=== PATIENT | female | born 1965 | race Caucasian/White ===

== ENCOUNTER → 2016-05-29 | Outpatient (CLI) | payer OTHER, SELFPAY ==
[2016-05-29 13:09] LABS: HEMOGLOBIN 12.8 gm/dl (12.3-15.3); RED BLOOD COUNT 4.45 M/UL (4.00-5.10); WHITE BLOOD COUNT 6.7 K/UL (4.5-11.0)
[2016-05-29 13:36] LABS: BUN/CREATININE RATIO 9 (0-10)
== END ==
LOC: CT 12:18
PROVIDERS: Internal Medicine Hematology & Oncology
DX: C34.12 Malignant neoplasm of upper lobe, left bronchus or lung (principal); C77.1 Secondary and unspecified malignant neoplasm of intrathoracic lymph nodes; E03.9 Hypothyroidism, unspecified
CPT/HCPCS: 36415; 71260; 80053; 84436; 84443; 84480; 85025; J7050; Q9962

== ENCOUNTER → 2020-07-28 | Outpatient (CLI) | payer MEDICARE, OTHER | LOC: CT 13:00 | DX: C34.12 Malignant neoplasm of upper lobe, left bronchus or lung (principal); R92.0 Mammographic microcalcification found on diagnostic imaging of breast; C77.1 Secondary and unspecified malignant neoplasm of intrathoracic lymph nodes; D51.8 Other vitamin B12 deficiency anemias; D64.9 Anemia, unspecified; Z98.890 Other specified postprocedural states | CPT/HCPCS: 71260; 77065; Q9967 ==

== ENCOUNTER → 2021-06-28 | Outpatient (CLI) | payer MEDICARE | LOC: CT 14:44 | DX: C34.90 Malignant neoplasm of unspecified part of unspecified bronchus or lung (principal); J39.8 Other specified diseases of upper respiratory tract | CPT/HCPCS: 71270; Q9967 ==

== ENCOUNTER → 2021-11-24 | Day surgery (SDC) | payer MEDICARE, OTHER ==
[~2021-11-24] MED LIST: AZELASTINE HCL6 ML OP; BENZONATATE100 MG PO; BREZTRI AEROS10.7 GM INH; CARVEDILOL6.25 MG PO; CLARITIN10 M2 PO; CRESTOR20 MG PO; JARDIANCE10 MG PO; LEVOTHYROXINE75 MC1 PO; ONDANSETRON HCL4 MG PO; OXYCODONE-ACET1 EACH PO; PROAIR HFA8.5 GM INH; PROTONIX 40 MG40 M1 PO; VAZALORE81 MG PO
== END | disposition home or self-care (01) ==
LOC: OR 06:54
DX: Z12.11 Encounter for screening for malignant neoplasm of colon (principal); K29.60 Other gastritis without bleeding; K64.1 Second degree hemorrhoids; K25.4 Chronic or unspecified gastric ulcer with hemorrhage; R63.4 Abnormal weight loss; J44.9 Chronic obstructive pulmonary disease, unspecified; E03.9 Hypothyroidism, unspecified; Z85.118 Personal history of other malignant neoplasm of bronchus and lung; Z72.0 Tobacco use; Z79.82 Long term (current) use of aspirin; Z68.21 Body mass index [BMI] 21.0-21.9, adult
CPT/HCPCS: 43239; G0121; 82962; 88342; J2704; J7040